=== PATIENT | male | born 1960 | race Caucasian/White ===

== ENCOUNTER → 2024-02-12 11:29 | Outpatient (BNVA) | payer MEDICARE, BC, SELFPAY | PROVIDERS: Family Provider Family Medicine; PCP Family Medicine; Visit Provider Family Medicine | DX: E03.9 Hypothyroidism, unspecified (principal); I10 Essential (primary) hypertension; I87.2 Venous insufficiency (chronic) (peripheral); L03.90 Cellulitis, unspecified; L30.9 Dermatitis, unspecified; R03.0 Elevated blood-pressure reading, without diagnosis of hypertension | CPT/HCPCS: 80053; 84443; 85025; 86140 ==

== ENCOUNTER → 2025-08-15 09:03 | Outpatient (BNVA) | payer MEDICARE, BC, SELFPAY | PROVIDERS: Family Provider Family Medicine; PCP Family Medicine; Visit Provider Family Medicine | DX: I87.2 Venous insufficiency (chronic) (peripheral) (principal); L30.9 Dermatitis, unspecified | CPT/HCPCS: 80053; 82607; 85025 ==